=== PATIENT | female | born 1975 | race African-American/Black ===

== ENCOUNTER 2021-02-19 14:06 | Observation (INO) ==
[2021-02-19 14:36] LABS: Basophils % 0.5 % (0.0-0.8); Eosinophils # 0.1 10*3/uL (0.0-0.87); Eosinophils % 1.4 % (0.00-10.9); Hematocrit 40.1 VOL% (35.7-47.0); Hemoglobin 13.2 GM/DL (12.0-16.0); Immature Granulocytes % 0.5 %; Immature Granulocytes Absolute 0.04 #; Lymphocytes # 2.7 10*3/uL (1.4-4.0); Lymphocytes % 30.4 % (21.3-54.2); Mean Corpuscular HGB Conc 32.9 GM/DL (32-36); Mean Platelet Volume 11.7 FL (9.6-12.0); Monocytes % 5.8 % (1.7-12.7); Neutrophils % 61.4 % (38.7-73.9); Platelet Count 213 T/CUMM (130-400); Red Blood Count 4.83 MC/CUMM (3.8-5.5); Red Cell Distribution Width 14.3 % (9.3-17.3); White Blood Count 8.8 T/CUMM (4-12)
[2021-02-19 14:57] LABS: Alanine Aminotransferase 18 U/L (13-56); Albumin 2.8 G/DL (3.4-5.0); Alkaline Phosphatase 48 U/L (45-117); Aspartate Amino Transferase 9 U/L (0-37); Bilirubin,Total < 0.39 MG/DL (0.20-1.00); Blood Urea Nitrogen 17 MG/DL (7-18); Calcium 7.9 MG/DL (8.5-10.1); Carbon Dioxide 24 MMOL/L (21-32); Estimated Glom Filtration Rate 88 ML/MIN; Glucose 156 MG/DL (74-106); Osmolality,Calculated 283.4 MOS/KG (273-304); Potassium 3.7 MMOL/L (3.5-5.1); Sodium 140 MMOL/L (136-145); Total Protein 6.3 G/DL (6.4-8.2)
[2021-02-19] MEDS ORDERED: AMITRIPTYLINE 100 MG TABLET PO SCH (21:00)
[2021-02-19] MEDS ORDERED: ENOXAPARIN 30 MG/0.3 ML SYRINGE SUBCUT STA (21:05)
[2021-02-19] MEDS ORDERED: ENOXAPARIN 120 MG/0.8 ML SYRINGE SUBCUT STA (21:06)
[2021-02-19] MEDS ORDERED: GLUCAGON 1 MG VIAL IM PRN (21:32)
[2021-02-19] MEDS ORDERED: ACETAMINOPHEN 325 MG TABLET PO PRN (21:32)
[2021-02-19] MEDS ORDERED: DEXTROSE 50% 25 GM/50 ML VIAL IV PRN (21:32)
[2021-02-19] MEDS ORDERED: ZALEPLON 5 MG CAPSULE PO PRN (21:32)
[2021-02-19] MEDS ORDERED: ONDANSETRON 4 MG/2 ML VIAL IV PRN (21:32)
[2021-02-19] MEDS ORDERED: PROMETHAZINE 25 MG TABLET PO PRN (21:38)
[2021-02-19] MEDS ORDERED: DEXTROSE 50% 25 GM/50 ML SYRINGE IV PRN (21:49)
[2021-02-19] MEDS ORDERED: HydrOXYzine PAMOATE 25 MG CAPSULE PO PRN (21:51)
[2021-02-19] MEDS ORDERED: tiZANidine 4 MG TABLET PO PRN (21:52)
[2021-02-20 07:37] LABS: Basophils % 0.4 % (0.0-0.8); Eosinophils # 0.2 10*3/uL (0.0-0.87); Eosinophils % 2.3 % (0.00-10.9); Hematocrit 38.3 VOL% (35.7-47.0); Immature Granulocytes % 0.4 %; Immature Granulocytes Absolute 0.03 #; Lymphocytes # 2.2 10*3/uL (1.4-4.0); Lymphocytes % 26.5 % (21.3-54.2); Mean Corpuscular HGB Conc 33.9 GM/DL (32-36); Mean Corpuscular Volume 80.8 FL (87-102); Mean Platelet Volume 11.5 FL (9.6-12.0); Monocytes % 5.6 % (1.7-12.7); Neutrophils % 64.8 % (38.7-73.9); Platelet Count 208 T/CUMM (130-400); Red Blood Count 4.74 MC/CUMM (3.8-5.5); Red Cell Distribution Width 14.1 % (9.3-17.3); White Blood Count 8.2 T/CUMM (4-12)
[2021-02-20] MEDS ORDERED: RIVAROXABAN 15 MG TABLET PO SCH (08:00)
[2021-02-20 08:01] LABS: Alanine Aminotransferase 11 U/L (13-56); Albumin 2.5 G/DL (3.4-5.0); Alkaline Phosphatase 44 U/L (45-117); Aspartate Amino Transferase 7 U/L (0-37); Bilirubin,Total < 0.39 MG/DL (0.20-1.00); Blood Urea Nitrogen 13 MG/DL (7-18); Carbon Dioxide 22 MMOL/L (21-32); Eosinophils 2 % (0-10); Estimated Glom Filtration Rate 99 ML/MIN; Glucose 139 MG/DL (74-106); Hypochromia Slight; Lymphocytes 20 % (20-55); Microcytosis 1+; Osmolality,Calculated 280.4 MOS/KG (273-304); Platelet Estimate Adequate; Potassium 3.9 MMOL/L (3.5-5.1); Segmented Neutrophils 76 % (50-85); Sodium 140 MMOL/L (136-145); Total Cells Counted 100; Total Protein 6.3 G/DL (6.4-8.2)
[2021-02-20] MEDS: INSULIN REGULAR 100 UNIT/ML SUBCUT SCH ×3 (08:28→16:32)
[2021-02-20] MEDS ORDERED: ESCITALOPRAM 10 MG TABLET PO SCH (09:00)
[2021-02-20] MEDS ORDERED: ASPIRIN EC 81 MG TABLET PO SCH (09:00)
[2021-02-20] MEDS ORDERED: LINACLOTIDE 145 MCG CAPSULE PO SCH (09:00)
[2021-02-20] MEDS ORDERED: PANTOPRAZOLE 40 MG TABLET PO SCH (09:00)
[2021-02-20 09:07] VITALS: BP 102/65
== END 2021-02-20 16:31 | disposition home or self-care (01) ==
LOC: N.EDINP 14:06 → N.ED 14:06 → SUATTDRO 21:32 → N.5E 02-20 07:54
PROVIDERS: ADMIT Internal Medicine; ATTEND Internal Medicine